=== PATIENT | male | born 1950 | race Caucasian/White ===

== ENCOUNTER 2024-09-18 11:55 | Day surgery (SDC) | payer MEDICARE, SELFPAY ==
[2024-09-18] VITALS (10 sets, daily range): BP systolic 122–174; BP diastolic 67–97; PULSE 65–97; RESP 15–26; TEMP 36.7; O2SAT 96–100; BMI 29.0
[2024-09-18] MEDS: RINGERS LACTATED 1000 ML 1,000 ML 100 ML IV (13:14)
[2024-09-18] MEDS: fentaNYL CIT INJ 50 mCg/ML AMP 2ML (ASD USE ONLY) IV (13:19)
[2024-09-18] MEDS: MIDAZOLAM INJ 1 MG/ML VIAL 2 ML (ASD USE ONLY) 2 MG IV (13:31)
--- NOTE | 2024-09-18 15:09 | SUR.PHASEII ---
1344: Pt received in [place] via gurney. Report from Regla PINEDA. Pt groggy, but awake. Resp even, unlabored. BP elevated but below pre-op baseline. Other VS stable. Pt denies pain. 1413: Pt more awake, alert. VS stable. BP down. Denies pain. Sitting up tolerating po fluids with no difficulty swallowing and no n/v. 1426: Pt fully awake, oriented x3. Pt assisted to restroom. Ambulation steady. 1437: Pt and sister stated understanding of discharge instructions. Pt discharged from [facility] in stable condition.
== END 2024-09-18 14:37 | disposition home or self-care (01) ==
PROVIDERS: PCP Family Medicine; Referring Provider Surgery; Visit Provider Surgery
PROC: 0DBE8ZX Excision of Large Intestine, Via Natural or Artificial Opening Endoscopic, Diagnostic (ICD-10-PCS; CPT 45380; principal; 2024-09-18 13:00)
DX: Z12.11 Encounter for screening for malignant neoplasm of colon (principal); Z87.19 Personal history of other diseases of the digestive system
CPT/HCPCS: G0121; J2250; J3010; J7120